=== PATIENT | female | born 1960 | race Caucasian/White ===

== ENCOUNTER → 2019-09-23 09:54 | Outpatient (CLI) | payer MEDICARE | END | disposition home or self-care (01) | LOC: D.HCCECHO 09:54 | PROVIDERS: ATTEND Internal Medicine Cardiovascular Disease | DX: R07.9 Chest pain, unspecified (principal) ==

== ENCOUNTER 2019-10-04 08:39 | Outpatient (CLI) | payer MEDICARE ==
[~2019-10-04] VITALS: Ht 165.1 cm; Wt 104.5 kg
--- NOTE | ~2019-10-04 | HEMODYNAMI ---
PATIENT:POOJA MANZANO MEDICAL RECORD: [id number] : 58 LOCATION:[facility] ADMISSION DATE: 10/04/19 Generatedon:10/04/201910:29 Patient name: POOJA MANZANO Patient #: [id number] : 1960 Date of study: 10/04/2019 Page: Of Hemodynamic Procedure Report Patient Data Patient Demographics Procedure consent was obtained First Name: POOJA Gender: Female Last Name: SELMA : 1960 Patient #: [id number] Age: 58 year(s) Race: SSN: [id number] Additional ID: [id number] Contact details Address: [address] [place] [address] [address]ACE State: [place] City: [place] Zip code: [address] Admission Admission Data Admission Date: 10/04/2019 Admission Time: 8:39 Arrival Date: 10/04/2019 Arrival Time: 10:00 Admit Source: Other Insurance Payor: Private health insurance [facility] #: [id number] Lab Results Lab Result Date: 10/04/2019 Lab Result Time: 0:00 Biochemistry Name Units Result Min Max BUN mg/dl 22 --(----)-* 7 18 Creatinine mg/dl 1 --(--*-)-- 0.6 1.3 eGFR ml/min 60 *-(----)-- 90 120 NONAFRICAN CBC Name Units Result Min Max Hemoglobin g/dl 11.5 *-(----)-- 13.5 17.5 Procedure Procedure Types Cath Procedure Diagnostic Procedure LHC [facility] w/Coronaries Sedation Charges Moderate Sedation up to 15 minutes Procedure Description Procedure Date Procedure Date: 10/04/2019 Procedure Start Time: 10:16 Procedure End Time: 10:22 Procedure Staff Name Function Freddie Ibanez MD Performing Physician Aydee De La Rosa RT Monitor Lena Chris RT Scrub Rody Manzano RN Nurse Procedure Data Cath Procedure Fluoroscopy Diagnostic fluoroscopy Total fluoroscopy Time: 1.1 time: 1.1 min min Diagnostic fluoroscopy Total fluoroscopy dose: 108 dose: 108 mGy mGy Contrast Material Contrast Material Type Amount (ml) Isovue 300 40 Entry Location Entry Primary Successful Side Size Upsize Upsize Entry Closure Oconnor ccessful Closure Location (Fr) 1 (Fr) 2 (Fr) Remarks Device Remarks Radial Right 6 Fr Mechanical artery Short Compression Estimated blood loss: 5 ml Diagnostic catheters Device Type Used For End Catheter Placement DIAGNOSTIC [place] 110cm 5 Multi-vessel Fr catheter ([id number]) Angiography Procedure Complications No complications Procedure Medications Medication Administration Route Dosage Oxygen etCO2 Nasal cannula 2 l/min Lidocaine 2% added to field 20 Heparin Flush Bag added to field 2 bags (1000units/500ml NS) 0.9% NaCl I.V. 100 ml/hr Versed I.V. 2 mg Fentanyl I.V. 100 mcg Radial Cocktail I.A. 1 syringe (Verapamil 2mg/Nitro 400mcg/Heparin 1500units) Versed I.V. 2 mg Fentanyl I.V. 100 mcg Versed I.V. 2 mg Hemodynamics Rest HGB: 11.5 (g/dl) Heart Rate: 77 (bpm) Pressure Samples Time Site Value (mmHg) Purpose Heart Use Rate(bpm) 10:18 LV 66/21,22 Snapshot 100 Snapshots Pre Cath Intra NCS Post Cath Vital Signs Time Heart Resp SPO2 etCO2 NIBP Rhythm Pain Sedation Rate (ipm) (%) (mmHg) (mmHg) Status Level (bpm) 10:08:44 79 23 98 27 127/74(93) NSR (Missing) 10(A) 10:12:52 79 13 100 15.7 122/71(83) NSR (Missing) 10(A) 10:17:53 80 15 94 32.3 123/63(90) NSR (Missing) 9(A) 10:22:05 86 20 96 33 116/60(94) NSR (Missing) 10(A) 10:24:47 85 17 95 34.5 106/41(67) NSR (Missing) 10(A) Medications Time Medication Route Dose Verified Delivered Reason Notes Effectiveness by by 10:07:55 Oxygen etCO2 2 l/min Freddie Fine used for Nasal Shamar Manzano logistics account manager cannula 10:08:03 Lidocaine 2% added 20ml Freddie Frazier for local to vial Shamar Ibanez MD anesthetic field 10:08:09 Heparin Flush added 2 bags Freddie Frazier used for Bag to Shamar Ibanez MD procedure (1000units/500ml field NS) 10:08:18 0.9% NaCl I.V. 100 Freddieboom Fine Per ml/hr Shamar Manzano RN physician 10:13:30 Versed I.V. 2 mg Freddie Echolsie for sedation Shamar Manzano RN 10:13:35 Fentanyl I.V. 100 mcg Freddie Echolsie for sedation Shamar Manzano RN 10:17:36 Versed I.V. 2 mg Freddie Buffie for sedation Shamar Manzano RN 10:17:39 Fentanyl I.V. 100 mcg Freddie Echolsie for sedation Shamar Manzano RN 10:18:00 Radial Cocktail I.A. 1 Freddie Echolsie for (Verapamil syringe Shamar Manzano RN vasodilation 2mg/Nitro 400mcg/Heparin 1500units) 10:20:39 Versed I.V. 2 mg Freddie Echolsie for sedation Shamar Manzano RN Procedure Log Time Note 9:13:45 Informed consent obtained and on chart 9:14:46 Arrival Date: 10/04/2019 10:00:00 AM 9:15:16 Admit Source: Other 9:15:20 Insurance Payor : Private health insurance 9:15:33 Diagnostic Cath Status : Elective 9:16:20 Procedure Status Elective Heart Cath (OP). 9:16:23 Rody Manzano RN sent for patient. Start room use. 9:16:25 Time tracking: Regular hours (M-F 7:00 - 5:00) 9:16:30 Plan of Care:Hemodynamics will remain stable., Cardiac rhythm will remain stable., Comfort level will be maintained., Respiratory function will remain adequate., Patient/ family verbilizes understanding of procedure., Procedure tolerated without complication., Recovers from procedure without complications.. 9:41:24 Lab Result : eGFR NONAFRICAN 60 ml/min 9:41:24 Lab Result : Creatinine 1 mg/dl 9:41:24 Lab Result : BUN 22 mg/dl 9:41:24 Lab Result : Hemoglobin 11.5 g/dl 9:41:37 2) 60-89 Mildly reduced kidney function, and other findings (as for stage 1) point to kidney disease. 9:44:08 Maximum allowable contrast dose (3.7 X eGFR X 0.75)166 ml. 9:44:14 Risk of Mortality: 0.1 9:44:17 Risk of blood transfusion: 1.1 9:44:23 Risk of CATHI: 3.2 9:52:50 Patient received from Pre/Post Procedure Room to CCL 3 Alert and oriented. Tansferred to table in Supine position. 9:52:51 Warm blankets applied, and chrissy hugger turned on for patient comfort. 9:52:51 Correct patient and procedure confirmed by team. 9:52:52 ECG and BP/O2 sat monitors applied to patient. 10:07:44 Vital chart was started 10:07:55 Oxygen 2 l/min etCO2 Nasal cannula was administered by Rody Manzano RN; used for procedure; Verbal order read back and verified. 10:08:03 Lidocaine 2% 20ml vial added to field was administered by Freddie Ibanez MD; for local anesthetic; Verbal order read back and verified. 10:08:09 Heparin Flush Bag (1000units/500ml NS) 2 bags added to field was administered by Freddie Ibanez MD; used for procedure; Verbal order read back and verified. 10:08:18 0.9% NaCl 100 ml/hr I.V. was administered by oRdy Manzano RN; Per physician; Verbal order read back and verified. 10:09:15 Patients family notified of start of procedure 10:09:17 Baseline sample Acquired. 10:09:28 Rhythm: sinus rhythm 10:11:22 Full Disclosure recording started 10:11:26 H&P Date Dictated: 10/04/2019 Within 30 days and on chart., H&P Addendum completed by physician on day of procedure. (MUST COMPLETE FOR ALL OUTPATIENTS). 10:11:28 Pre-procedure instructions explained to patient. 10:11:28 Pre-op teaching completed and patient verbalized understanding. 10:11:29 Family in waiting room. 10:11:32 Patient NPO since Midnight. 10:11:33 Is the patient allergic to Iodine/contrast media? No. 10:11:35 Was the patient premedicated? Yes 10:11:36 Is patient on blood thinner?No 10:11:37 Patient diabetic? Yes. 10:11:38 If diabetic: On Metformin? Yes 10:11:40 If on Metformin: Last Dose? 10/02/2019 10:11:44 Previous problem with sedation/anesthesia? No ? 10:11:45 Snore? Yes 10:11:47 Sleep apnea? Yes 10:11:48 Deviated septum? No 10:11:48 Opens mouth fully? Yes 10:11:49 Sticks out tongue? Yes 10:11:51 Airway obstruction? No ? 10:11:54 Dentures? No ? 10:11:58 Pre procedure: right dorsailis pedis pulse 2+ Normal; easily identifiable; not easily obliterated 10:12:00 Pre procedure: left dorsailis pedis pulse 2+ Normal; easily identifiable; not easily obliterated 10:12:02 Patient pain scale 0/10 ?. 10:12:06 Modified Adria's test Radial < 7 seconds 10:12:11 IV patent on arrival in left forearm with 0.9% NaCl at O. 10:12:16 Lab results completed and on chart. 10:12:21 Stress Test: yes; abnormal anterior 10:12:27 Right Radial & Right Groin area was prepped with chlora-prep and draped in sterile fashion 10:12:28 Alarms reviewed by R. N. 10:12:28 Sharps counted by scrub and verified by R.N. 10:12:29 Physician arrived 10:12:29 --------ALL STOP TIME OUT------ 10:12:30 Final Timeout: patient, procedure, and site verified with staff and physician. All members of the team are in agreement. 10:12:31 Right Radial & Right Groin site verified by team. 10:12:35 Fire Safety Assessment: A--An alcohol-based skin anteseptic being used preoperatively., C--Open oxygen or nitrous oxide is being used., D--An ESU, laser, or fiber-optic light is being used. 10:12:38 Physical assessment completed. ASA score P 2 - A patient with mild systemic disease as per Freddie Ibanez MD. 10:12:41 Sedation plan: IV Moderate Sedation Medication:Versed, Fentanyl 10:12:48 Use device set Radial Dx or PCI 10:12:49 ACIST Syringe (69809) opened to sterile field. 10:12:49 Medline Cath Pack ([id number]) opened to sterile field. 10:12:50 Bag Decanter (2001S) opened to sterile field. 10:12:50 ACIST Hand Control (13928) opened to sterile field. 10:12:50 ACIST Manifold (07848) opened to sterile field. 10:12:51 Tegaderm 4 x 4 (1626W) opened to sterile field. 10:12:51 MBrace Wrist Support ([id number]) opened to sterile field. 10:12:58 EMERALD Guide Wire (291-400) opened to sterile field. 10:12:59 SHEATH 6FR RAIN (6497777) opened to sterile field. 10:13:30 Versed 2 mg I.V. was administered by Rody Manzano RN; for sedation; Verbal order read back and verified. 10:13:35 Fentanyl 100 mcg I.V. was administered by Rody Manzano RN; for sedation; Verbal order read back and verified. 10:16:13 Procedure started. 10:16:17 Local anesthetic to right radial artery with Lidocaine 2% by Freddie Ibanez MD.INITIAL ACCESS ONLY 10:16:25 A 6 Fr Short sheath was inserted into the Right Radial artery 10:17:31 A DIAGNOSTIC [place] 110cm 5 Fr catheter (054084) was advanced over the wire and used for Multi-vessel Angiography. 10:17:36 Versed 2 mg I.V. was administered by Rody Manzano RN; for sedation; Verbal order read back and verified. 10:17:39 Fentanyl 100 mcg I.V. was administered by Rody Manzano RN; for sedation; Verbal order read back and verified. 10:18:00 Radial Cocktail (Verapamil 2mg/Nitro 400mcg/Heparin 1500units) 1 syringe I.A. was administered by Rody Manzano RN; for vasodilation; Verbal order read back and verified. 10:18:46 LV hemodynamics recorded. 10:18:47 LV gram done using PEREZ 10:18:51 Injector settings: Ml/sec: 5, Volume: 15, 10:19:03 EF : 60 % 10:19:29 RCA angiography performed. 10:19:31 Injector settings: Ml/sec: 3, Volume: 6, 10:20:00 LCA angiography performed. 10:20:03 Injector settings: Ml/sec: 3, Volume: 6, 10:20:15 Catheter removed. 10:20:18 ZEPHYR REGULAR TR BAND (382595) opened to sterile field. 10:20:23 ACCDominant side:Right 10:20:34 Sheath removed intact; hemostasis achieved with Mechanical Compression to the Right Radial artery. 10:20:36 Procedure ended.(Physican Out) 10:20:39 Versed 2 mg I.V. was administered by Rody Manzano RN; for sedation; Verbal order read back and verified. 10:20:55 Fluoroscopy time 01.10 minutes. 10:21:00 Fluoroscopy dose: 108 mGy 10:21:00 Flurop Dose total: 108 10:21:03 Dose Area Product 865 mGy/cm. 10:21:07 Contrast amount:Isovue 300 40ml. 10:21:09 Maximum allowable dose exceeded? No. 10:21:10 Sharps counted by scrub and verified by R.N. 10:21:13 [place] band inflated with 10cc of air. 10:21:14 Insertion/operative site no bleeding no hematoma. 10:21:18 Post right radial artery:stable 10:21:19 Post Procedure Pulses reassessed and unchanged 10:21:22 Post procedure rhythm: unchanged. 10:21:24 Estimated blood loss: 5 ml 10:21:26 Post procedure instruction explained to patient.Patient verbalizes understanding. 10:21:26 Patient needs reinforcement of post procedure teaching. 10:21:35 Procedure type changed to Cath procedure, Diagnostic procedure, LHC, [facility] w/Coronaries, Sedation Charges, Moderate Sedation up to 15 minutes 10:21:36 Procedure and supply charges have been captured, reviewed, submitted and are correct. 10:21:40 Procedure Complication : No complications 10:21:42 Vital chart was stopped 10:21:52 [facility] Findings: mild to moderate CAD (<70%) 10:22:01 Operative report dictated upon procedure completion. 10:22:01 See physician's report for complete and final results. 10:22:10 Report given to Pre/Post Procedure Room. 10:22:13 Patient transfered to Pre/Post Procedure Room with Stretcher. 10:22:15 Procedure ended. 10:22:15 Full Disclosure recording stopped 10:22:22 End room use (Document Last) 10:24:29 End room use (Document Last) 10:24:58 End room use (Document Last) Device Usage Item Name Manufacture Quantity Catalog Hospital Part Current Minima l Lot# / Number Charge Number Stock Stock Serial# Code ACIST Acist 1 76570 456007 [id number] 20 Syringe Medical (74814) Systems Inc Medline Medline 1 [id number] [id number] 96533 089358 5 Cath Pack ([id number]) Bag Microtek 1 2001S 411153 74187 941775 5 Decanter Medical Inc. (2001S) ACIST Hand Acist 1 57329 091227 289463 839881 5 Control Medical (77931) Systems Inc ACIST Acist 1 18177 564997 564344 022643 5 Manifold Medical (24043) Systems Inc Tegaderm 4 3M 1 1626W 043044 546699 100847 5 x 4 (1626W) MBrace Advanced 1 140-0250-00 231412 92926 004658 5 Wrist Vascular Support Dynamics ([id number]) EMERALD Cardinal 1 502-033 805171 579053 843211 5 Guide Wire Health (501-986) SHEATH 6FR Cardinal 1 8016308 701332 1275689 212498 5 [facility] (1072009) DIAGNOSTIC Terumo 1 40-0145 082371 297648 501441 5 [place] 110cm 5 Fr catheter (804262) ZEPHYR Cardinal 1 061794 510590 8115021 089434 5 REGULAR TR Health BAND (341308) Signature Audit [place] Stage Time Signature Unsigned Intra-Procedure 10/04/2019 Aydee De La Rosa 10:24:29 AM RT(R) Intra-Procedure 10/04/2019 Rody Manzano RN 10:24:58 AM Intra-Procedure 10/04/2019 Freddie Ibanez 10:29:33 AM [facility] [address] [place] [address]
--- NOTE | ~2019-10-04 | OP ---
PATIENT NAME: POOJA HAHN MEDICAL RECORD: [id number] :58 LOCATION:[facility] ADMISSION DATE: SURGEON: NAVYA MARQUEZ MD DATE OF OPERATION: 10/04/2019 DATE OF SERVICE: 10/04/2019 PROCEDURES: 1. Left heart catheterization. 2. Selective coronary angiography. 3. Left ventriculogram. INDICATION: Angina, abnormal nuclear stress test. PROCEDURE IN DETAIL: After informed consent was obtained and after a detailed description of the risks, benefits as well as alternative therapies, the patient elected to proceed with angiogram and heart catheterization. Right radial area was prepped and draped in normal sterile fashion. Right radial artery was cannulated via modified Seldinger technique with placement of 5-Kiswahili sheath. All catheters exchanged through this sheath. FINDINGS: Left ventriculogram was performed in standard 30-degree PEREZ view, reveals good cardiac wall motion, ejection fraction estimated at 60%. SELECTIVE CORONARY ANGIOGRAPHY: Left main, left anterior descending, left circumflex, right coronary are all smooth-walled vessels with no angiographic evidence of coronary artery disease. OVERALL IMPRESSION: 1. No angiographic evidence of coronary artery disease. 2. Normal left heart pressures. 3. Normal left ventricular systolic function. Chest pain is noncardiac in etiology. No further cardiac workup needs to be ascertained. TRANSINT:[id number] Voice Confirmation ID: [id number] DOCUMENT ID: [id number] NAVYA MARQUEZ MD CC: [id number] DICTATION DATE: 10/04/19 1023 GARMENT INSPECTOR: 10/04/19 1735 DEP CLI 10/04/19 [id number] [place] [address]
[2019-10-04 09:15] LABS: BASOPHILS 0.8 % (0-2); EOSINOPHILS 5.9 % (0-7); HEMOGLOBIN 11.5 g/dL (12-16); IMMATURE GRANULOCYTES 0.4 % (0-5); LYMPHOCYTES 26.7 % (15-50); MCH 25.9 pg (26.0-34.0); MCHC 31.9 g/dL (31.0-37.0); MCV 81.1 fL (80.0-100.0); MEAN PLATELET VOLUME 8.3 fL (7.4-10.4); MONOCYTES 6.8 % (2-11); NEUTROPHILS 59.4 % (40-80); PLATELET COUNT 358 10x3/uL (130-400); RBC 4.44 10x6/uL (4.00-5.40); RDW 13.2 % (11.5-14.5); WBC 9.1 10x3/uL (4.8-10.8)
[2019-10-04 09:17] VITALS: BP 123/46; Ht 165.1 cm; Wt 104.5 kg
[2019-10-04] MEDS ORDERED: CYMBALTA60 MG PO (09:27)
[2019-10-04] MEDS ORDERED: LIPITOR20 MG PO (09:27)
[2019-10-04] MEDS ORDERED: TRAVATAN Z2.5 ML EACH EYE (09:27)
[2019-10-04] MEDS ORDERED: TIMOPTIC 0.5 % O5 ML EACH EYE (09:28)
[2019-10-04] MEDS ORDERED: GLUCOPHAGE1000 MG PO (09:28)
[2019-10-04] MEDS ORDERED: LISINOPRIL2.5 MG PO (09:28)
[2019-10-04] MEDS ORDERED: GLUCOTROL 5 MG T5 MG PO (09:29)
[2019-10-04 09:36] LABS: CALCIUM 9.5 mg/dL (8.5-10.1); CARBON DIOXIDE 23.2 mmol/L (21.0-32.0); CHOL - HDL RATIO 3.5 ratio (2.3-4.1); LDL-HDL RATIO 1.5 ratio (1.5-3.5); POTASSIUM - SERUM 4.2 mmol/L (3.5-5.1)
--- NOTE | 2019-10-04 10:35 | NUR ---
PT RECEIVED VIA STRETCHER FROM [employer] FOR [employer]ERY. PT AWAKE AND SLIGHTLY DROWSY, SHE DENIES PAIN OR DISCOMFORT. IV PATENT INFUSING VIA L ARM PER ORDERS. PT PLACED ON CARDIAC MONITORS AND O2 VIA NC @ 2L. HR NSR RATE 81, BP 114/46, RR 16, SAT 99. ZYPHER BAND AND IMMOBILIZER TO R WRIST/ARM IN PLACE, DRESSING CDI NO S/S HEMATOMA OR BLEEDING ONTED. ARM PINK AND WARM, CAP REFILL BRISK. PT INSTRUCTED TO KEEP ARM STILL AND NOT USE, SHE VERBALIZED UNDERSTANDING. CALL LIGHT IN REACH. PT DENIES NEEDS
--- NOTE | 2019-10-04 10:35 | NUR ---
PT RECEIVED VIA STRETCHER FROM [employer] FOR RECOVERY. PT AWAKE SLIGHTLY DROWSY. PT DENIES PAIN OR DISCOMFORT. IV PATENT INFUSING VIA L ARM PER ORDERS. PT PLACED ON CARDIAC MONITORS AND O2 VIA NC AT 2L. HR NSR RATE 81, BP 114/46, RR 16, SAT 99. ZYPHER BAND AND IMMOBILIZER TO R WRIST/ARM IN PLACE, DRESSING CDI NO S/S HEMATOMA OR BLEEDING. ARM PINK AND WARM, CAP REFILL BRISK. PT INSTRUCTED NOT TO USE THAT ARM, SHE VERBALIZED UNDERSTANDING. CALL LIGHT IN REACH
--- NOTE | 2019-10-04 11:00 | NUR ---
PT RESTING W EYES CLOSED. VSS. ZBAND AND IMMOBILIZER IN PLACE NO S/S HEMATOMA NOTED. ARM PINK AND WARM, CAP REFILL BRISK. CALL LIGHT IN REACH. S/O NOTIFIED AND UPDATED OF PT STATUS PER PT CONSENT.
--- NOTE | 2019-10-04 11:35 | NUR ---
4 CC AIR REMOVED FROM Z BAND, NO BLEEDING NOTED. CAP REFILL BRISK. PT TOLERATED PO FOOD AND FLUIDS W/O NAUSEA. CALL LIGHT IN REACH
--- NOTE | 2019-10-04 12:16 | NUR ---
4 ADD'L CC AIR REMOVED FROM ZBAND, NO BLEEDING OR SWELLING NOTED. VSS. PT DENIES PAIN OR NEEDS.
--- NOTE | 2019-10-04 12:30 | NUR ---
IV REMOVED W CATH INTACT, MONITORS REMOVED AND PT UP TO DRESS FOR DISCHARGE. R WRIST W ZBAND AND IMMOBILIZER IN PLACE.
--- NOTE | 2019-10-04 12:45 | NUR ---
PT AMBULATED TO BR, VOIDING W/O DIFFICULITY. ZBAND AND REMAINING AIR REMOVED W/O BLEEDING OR HEMATOMA NOTED. 2X2 AND SM TEGADERM DRESSING APPLIED.
--- NOTE | 2019-10-04 12:50 | NUR ---
PT DISCHARGED VIA WC TO PRIVATE VEHICLE W PARTNER WAITING. PT HAD ALL BELONGINGS AND DISCHARGE PAPERWORK IN HAND
== END 2019-10-04 12:50 | disposition home or self-care (01) ==
LOC: D.CATH 08:39
PROVIDERS: ATTEND Internal Medicine Interventional Cardiology
DX: I20.9 Angina pectoris, unspecified (principal); E11.9 Type 2 diabetes mellitus without complications; Z79.84 Long term (current) use of oral hypoglycemic drugs; E78.5 Hyperlipidemia, unspecified; I10 Essential (primary) hypertension; R07.9 Chest pain, unspecified; R06.09 Other forms of dyspnea; R00.2 Palpitations; R60.0 Localized edema; R01.1 Cardiac murmur, unspecified